=== PATIENT | male | born 1995 | race Caucasian/White ===

== ENCOUNTER → 2022-05-17 | Outpatient (CLI) | payer BC ==
[~2022-05-17] MED LIST: MOTRIN600 MG PO; MOTRIN800 MG PO
== END | disposition home or self-care (01) ==
LOC: RAD 16:33
PROVIDERS: ATTEND Chiropractor
DX: M43.8X5 Other specified deforming dorsopathies, thoracolumbar region (principal); M54.2 Cervicalgia